=== PATIENT | female | born 1990 ===

== ENCOUNTER 2017-07-02 15:00 | Inpatient (IN) | payer OTHER ==
[~2017-07-02] VITALS: Ht 165.1 cm; Wt 78.0 kg
[2017-07-02] MEDS ORDERED: PRENATAL TABLE1 EAC1 PO (22:13)
[2017-07-02] MEDS ORDERED: IRON18 MG PO (22:13)
== END 2017-07-05 11:12 | disposition home or self-care (01) | DRG 775 ==
LOC: LDR 21:37 → OB/GYN 21:37 → LDR 07-04 15:00 → OB/GYN 07-05 11:12
PROC: 10E0XZZ Delivery of Products of Conception, External Approach (ICD-10-PCS; principal; 2017-07-03)
PROC: 0KQM0ZZ Repair Perineum Muscle, Open Approach (ICD-10-PCS; 2017-07-03)
PROC: 10907ZC Drainage of Amniotic Fluid, Therapeutic from Products of Conception, Via Natural or Artificial Opening (ICD-10-PCS; 2017-07-03)
PROC: 3E0P7VZ Introduction of Hormone into Female Reproductive, Via Natural or Artificial Opening (ICD-10-PCS; 2017-07-03)
PROC: 3E033VJ Introduction of Other Hormone into Peripheral Vein, Percutaneous Approach (ICD-10-PCS; 2017-07-03)
PROC: 4A033R1 Measurement of Arterial Saturation, Peripheral, Percutaneous Approach (ICD-10-PCS; 2017-07-03)
PROC: 4A1HXCZ Monitoring of Products of Conception, Cardiac Rate, External Approach (ICD-10-PCS; 2017-07-03)
DX: O70.1 Second degree perineal laceration during delivery (principal); Z37.0 Single live birth; O99.824 Streptococcus B carrier state complicating childbirth; Z3A.39 39 weeks gestation of pregnancy

== ENCOUNTER 2020-12-24 11:45 | Inpatient (IN) | payer OTHER ==
[~2020-12-24] VITALS: Ht 160 cm; Wt 76.7 kg
[~2020-12-24 11:45] MED LIST: IRON18 MG PO; PRENATAL TABLE1 EAC1 PO
== END 2021-01-05 14:51 | disposition home or self-care (01) | DRG 807 ==
LOC: OB/GYN 01-03 06:27 → LDR 01-03 06:27 → OB/GYN 01-03 14:45 → SURH 01-07 11:45
PROVIDERS: ADMIT Specialist; ATTEND Specialist
PROC: 10E0XZZ Delivery of Products of Conception, External Approach (ICD-10-PCS; principal; 2021-01-03)
PROC: 0HQ9XZZ Repair Perineum Skin, External Approach (ICD-10-PCS; 2021-01-03)
PROC: 10907ZC Drainage of Amniotic Fluid, Therapeutic from Products of Conception, Via Natural or Artificial Opening (ICD-10-PCS; 2021-01-03)
PROC: 3E0P7VZ Introduction of Hormone into Female Reproductive, Via Natural or Artificial Opening (ICD-10-PCS; 2021-01-03)
PROC: 4A1HXFZ Monitoring of Products of Conception, Cardiac Rhythm, External Approach (ICD-10-PCS; 2021-01-03)
DX: O62.2 Other uterine inertia (principal); Z37.0 Single live birth; O70.0 First degree perineal laceration during delivery; Z3A.39 39 weeks gestation of pregnancy